=== PATIENT | female | born 1970 | race Caucasian/White ===

== ENCOUNTER 2017-05-15 11:31 | Inpatient (IN) | payer BC ==
[2017-05-15] VITALS (12 sets, daily range): BP systolic 112–137; BP diastolic 59–84
[~2017-05-15] VITALS: Ht 170.2 cm; Wt 89.4 kg
[~2017-05-15 11:31] MED LIST: ACIDOPHILUS PR1 EACH PO; ADULT LOW DOSE81 MG PO; ASPIR 8181 MG PO; ASPIRIN EC81 M1 PO; ASPIRIN325 PO; ASPIRIN81 M2 PO; BRILINTA90 MG PO; BROMELAINS500 MG PO; CALTRATE-600 W1 EACH PO; CARVEDILOL6.25 MG PO; CIPROFLOXACIN250 M2 PO; CRESTOR10 MG PO; DIABETA 5MG TABL5 MG PO; DIABETA PO; EFFIENT10 MG PO; FAMOTIDINE20 MG PO; FISH OIL500 M2 PO; GLUCOPHAGE1000 MG PO; GLUCOPHAGE500 MG PO; GLYBURIDE 5 MG T5 MG PO; IBUPROFEN200 M2; ISOSORBIDE DINI30 MG PO; L-ARGININE1000 MG PO; LIDODERM 5%1 PATCH TOP; LIPITOR40 MG PO; LOPRESSOR25 PO; LOTEMAX5 ML; MAGNESIUM PO; MAGNESIUM250 M1 PO; MULTIVITAMINS PO; MYLANTA 12 OZ355 M1; NIACIN PO; NIASPAN 500 MG500 M1 PO; NIASPAN ER 101000 M1 PO; NITROGLYCERIN0.4 MG SL; OMEPRAZOLE; OMEPRAZOLE 20 M20 MG PO; OXYCODONE HCL 55 MG PO; PEPCID20 MG PO; PLAVIX 75 MG TA75 M1 PO; PLAVIX 75 MG TA75 MG PO; PRENATAL VITAM1 EAC2 PO; PRILOSEC 20 MG20 MG PO; PROTONIX40 M2 PO; RA NIACIN 500500 MG PO; ZOCOR40 MG PO; ZONTIVITY2.08 MG PO; [UNRECOGNIZED DRUG - OTHER] PO
[2017-05-15 11:49] LABS: ABSOLUTE BASOPHILS 0.1 thou/uL (0.0-0.2); ABSOLUTE EOSINOPHILS 0.3 thou/uL (0.0-0.7); ABSOLUTE MONOCYTES 0.4 thou/uL (0.0-1.2); ABSOLUTE NEUTROPHILS 4.9 thou/uL (1.6-8.1); HEMATOCRIT 40.5 % (37.0-47.0); LYMPHOCYTES 26.1 %; MCH 31.2 pg (26.0-34.0); MCHC 34.5 g/dL (28.0-37.0); MCV 90.3 fL (80.0-100.0); MONOCYTES 5.1 %; MPV 6.9 fl. (7.2-11.1); NUCLEATED RBCS 0 /100WBC; PLATELET COUNT* 258 thou/uL (150-400); POLYS 63.8 %; RBC 4.49 mil/uL (4.20-5.00); WBC 7.6 thou/uL (4.0-11.0)
[2017-05-15 12:01] LABS: APTT 26.5 Seconds (25.0-31.3); PROTIME 9.9 Seconds (9.20-11.50)
[2017-05-15 12:03] LABS: ANION GAP 10 mmol/L (7-16); BUN 12 mg/dL (7-18); CALCIUM 8.6 mg/dL (8.5-10.1); CHLORIDE 103 mmol/L (98-107); CO2 26 mmol/L (21-32); CREATININE 0.7 mg/dL (0.6-1.3); GLUCOSE 154 mg/dL (70-99); POTASSIUM 3.6 mmol/L (3.5-5.1); SODIUM 139 mmol/L (136-145)
[2017-05-15 12:23] LABS: ALBUMIN 3.8 g/dL (3.4-5.0); ALKALINE PHOSPHATASE 97 U/L (46-116); LIPASE 176 U/L (73-393); MAGNESIUM 1.8 mg/dL (1.8-2.4); NT-PRO BRAIN NAT PEPTIDE 34 pg/mL (<300); SGOT 18 U/L (15-37); SGPT 26 U/L (30-65); TOTAL BILIRUBIN 0.4 mg/dL (<0.1-1.0); TOTAL PROTEIN 7.1 g/dL (6.4-8.2); TROPONIN-I LEVEL <0.06 ng/mL (<0.06)
[2017-05-15 12:25] LABS: CK-MB MASS < 0.5 ng/mL (<0.5-3.6)
--- NOTE | 2017-05-15 16:27 | EKG ---
[place] [address] ELECTROCARDIOGRAM REPORT Name: EDEN OTERO JG Room: [place] [address] ADM IN R.#: [id number] Admission: 05/15/17 Attend Phys: Tian Santiago Discharge: Date of : 68 Report #: [id number] THIS REPORT FOR: //name// [facility] ED Test Date: 2017-05-15 Test Time: 11:39:25 Pat Name: EDEN OTERO Department: Room: [facility] Gender: F Stamp Analyst: Josh ROGERS : 1970 Requested By: Silviano Manuel Order Number: [id number] MD: Jose Luis Hodges Measurements Intervals [place] Rate: 92 P: 56 [place]: 148 QRS: 34 QRSD: 73 T: 4 QT: 419 QTc: 519 Interpretive Statements Sinus rhythm Low voltage, precordial leads Prolonged QT interval Compared to ECG 10/15/2015 16:42:10 No significant changes Electronically Signed On 05-15-2017 16:27:39 LOG CARRIER OPERATOR by Jose Luis Hodges [email or web address] <ELECTRONICALLY SIGNED> By: Jose Luis Hodges MD, FACC 05/15/17 1627 1139 1139 Jose Luis Hodges MD, FAC /EPI
[2017-05-15 19:34] LABS: CK-MB MASS < 0.5 ng/mL (<0.5-3.6); TROPONIN-I LEVEL <0.06 ng/mL (<0.06)
[2017-05-16] VITALS: BP 113/71; BP 114/73
[2017-05-16 01:22] LABS: CK-MB MASS < 0.5 ng/mL (<0.5-3.6); TROPONIN-I LEVEL <0.06 ng/mL (<0.06)
[2017-05-16 04:00] VITALS: BP 114/73
[2017-05-16 06:18] LABS: HEMATOCRIT 40.7 % (37.0-47.0); MCH 31.1 pg (26.0-34.0); MCHC 34.4 g/dL (28.0-37.0); MCV 90.6 fL (80.0-100.0); MPV 7.1 fl. (7.2-11.1); RBC 4.49 mil/uL (4.20-5.00); RDW-CV 12.9 % (10.5-14.5); WBC 8.2 thou/uL (4.0-11.0)
[2017-05-16 06:35] LABS: CK-MB MASS 0.6 ng/mL (<0.5-3.6); TROPONIN-I LEVEL <0.06 ng/mL (<0.06)
[2017-05-16 08:25] VITALS: BP 114/73
[2017-05-16 09:15] VITALS: BP 116/64
[2017-05-16 12:12] VITALS: BP 127/73
--- NOTE | 2017-05-16 13:10 | EKG ---
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 President Of Marketing: ESTEBAN : 1970 Requested By: Himanshu Ag Order Number: [id number] Dennise MD: Himanshu Ag Measurements Intervals [place] Rate: 72 P: 27 [place]: 146 QRS: 36 QRSD: 73 T: 30 QT: 464 QTc: 508 Interpretive Statements Sinus rhythm nonspecific t wave changes Low voltage, extremity and precordial leads Borderline prolonged QT interval Baseline wander in lead(s) III,aVF Compared to ECG 05/15/2017 11:39:25 No significant changes Electronically Signed On 05-16-2017 13:09:58 SURVEILLANCE INSPECTOR by Himanshu Ag [email or web address] <ELECTRONICALLY SIGNED> By: Himanshu Ag MD, [facility] 05/16/17 1309 0448 0448 Himanshu Ag MD, [facility] /EPI
[2017-05-16 13:39] VITALS: BP 127/73
--- NOTE | 2017-05-18 18:19 | CARD ---
[address] [address] CARDIAC CATH REPORT Name: BRANDENEDEN JO Room: [address] IN [facility]#: [id number] Admission: 05/15/17 Attend Phys: Tian Santiago Discharge: 05/16/17 Date of : 68 Report #: [id number] THIS REPORT FOR: //name// APPROVED REPORT Patient Details Patient Status: ED Room #: The patient is a 47 year-old female Event Personnel Alie Pinzon RN, RN, Hayley Caceres Monitor, Juan Luis Nguyen, Jose Luis Hodges Manager English, Ling Thorpe Monitor, Himanshu Ag Director Of Pulmonary Unit Procedures Performed Art Access - R femoral artery* , Left Heart Catheterization, Left Ventriculogram, PTCA with Stenting Indication Unstable angina Risk Factors Coronary Artery Disease Previous Procedures/Diagnoses Previous PCI Procedure Narrative The patient was brought electively to the Cardiac Catheterization Laboratory and was prepped and draped in a sterile manner. The right femoral was infiltrated with 1% Lidocaine subcutaneous anesthesia. A 6fr Ultimum Sheath sheath was inserted into the right femoral artery. Coronary angiography was performed using coronary diagnostic catheters. The right coronary system was accessed and visualized with a Diagnostic JR 4 catheter. The left coronary system was accessed and visualized with a Diagnostic JL 4 catheter. The left ventricle was accessed and visualized with a Diagnostic PIGTAIL catheter. Left ventricular/Aortic Valve gradient assessed via catheter pullback. Left ventriculogram was performed in CONNELLY projection. Pre-demployment femoral angiogram was performed . Closure device was deployed with a 6 Fr Angioseal STS 6Fr. The patient tolerated the procedure well and there were no complications associated with the procedure. There was no hematoma. Intraoperative [place] [address] CARDIAC CATH REPORT Name: EDEN OTERO Room: [address]#: [id number] Admission: 05/15/17 Attend Phys: Tian Santiago Discharge: 05/16/17 Date of : 68 Report #: [id number] Sedation start time: 15:21 Case end Time: 16:14 Fentanyl 50 mcg Versed 3 mg Fluoro Time: 3.7 minutes Dose: DAP 16479 cGycm2 1006.71 mGy Contrast Type and Amount: Omnipaque 180 ml Diagnostic Cath Left Main Left main coronary artery is normal and bifurcates into a left anterior descending and circumflex coronary artery. LAD The left anterior descending coronary artery has a widely patent stent in its proximal portion. The mid-vessel is 50% narrowed. The distal vessel appears normal. Diagonal 1 The first diagonal has a 70% in-stent restenosis noted in its proximal portion. The distal vessel appears free of significant disease. Circumflex The circumflex coronary artery is normal in its proximal mid and distal portion. OM1 The first obtuse marginal branch has a 40% narrowing proximally. The remainder the vessel appears normal. OM2 The second obtuse marginal branch is normal. Right Coronary The right coronary artery is normal in its proximal mid and distal portion. R PDA The right PDA is normal. RPLV The right posterior lateral LV branch is normal. Left Ventriculography The left ventricle is normal in size with normal contractility. The left ventricular ejection fraction is estimated to be 65-70%. Left ventricular wall motion abnormalities are not present. Hemodynamics The aortic pressure is 106/61 mmHg with a mean of mmHg. The left ventricular pressure is 131/7 mmHg with a mean of mmHg. The left ventricular end diastolic pressure is 14 mmHg. There was no gradient across the aortic valve upon pullback. Pullback from the left ventricle to the aorta revealed no gradient across the aortic valve. PCI Technique Lesion Anticoagulation was achieved with Heparin. the patient had been taking plavix Percutaneous coronary intervention was performed on the first diagnonal branch segment. The lesion stenosis prior to intervention was 99% with DARVIN 3 flow. A 6FR XB 3.0 100CM [place] [address] CARDIAC CATH REPORT Name: EDEN OTERO Room: [address] IN M.R.#: [id number] Admission: 05/15/17 Attend Phys: Tian Santiago Discharge: 05/16/17 Date of : 68 Report #: [id number] Catheter was used to engage the lca ostium. A bmw Interventional Guidewire was used to cross the lesion. STENT DEPLOYMENT A drug-eluting stent I-STAT was inserted and inflated up to 7.00atm for 8seconds. Repeat angiography revealed the following post-stent deployment results: 0% stenosis. Additional Inflation: 10.00atm for 13seconds. Additional Inflation: 11.00atm for 12seconds. Final angiography reveals 0 % stenosis with DARVIN 3 flow. Conclusion 1. No restenosis of a stent in the proximal lad, although there was a 70% stenosis beyond the stent 2. 99% restenosis of a stent in the first diagonal branch 3. successful repeat stenting of the first diagonal branch, although the artery beyond the stent was noted to be very small Recommendations Cardiac Rehabilitation Referral Aggressive Medical Therapy Diagnostic Cath Approved by: Jose Luis Hodges MD Date/Time: <ELECTRONICALLY SIGNED> By: Himanshu Ag MD, [facility] 05/18/171818 18 18Dakath Ag MD, [facility] /INF
== END 2017-05-16 16:14 | disposition home or self-care (01) | DRG 303 ==
LOC: M.ERS 11:31 → M.TBA-ER 12:18 → M.2W 17:47
PROVIDERS: Family Medicine; Internal Medicine Cardiovascular Disease; ADMIT Internal Medicine
DX: I25.110 Atherosclerotic heart disease of native coronary artery with unstable angina pectoris (principal); K21.9 Gastro-esophageal reflux disease without esophagitis; E11.9 Type 2 diabetes mellitus without complications; E78.5 Hyperlipidemia, unspecified; F17.210 Nicotine dependence, cigarettes, uncomplicated; Z71.6 Tobacco abuse counseling; I25.2 Old myocardial infarction; Z90.49 Acquired absence of other specified parts of digestive tract; Z95.5 Presence of coronary angioplasty implant and graft; Z79.02 Long term (current) use of antithrombotics/antiplatelets; Z79.82 Long term (current) use of aspirin; Z79.84 Long term (current) use of oral hypoglycemic drugs; Z79.899 Other long term (current) drug therapy

== ENCOUNTER 2017-07-20 15:36 | Inpatient (IN) | payer BC ==
[~2017-07-20] VITALS: Ht 170.2 cm; Wt 87.1 kg
[2017-07-20 15:39] VITALS: BP 130/79
[2017-07-20] MEDS ORDERED: ASA5UEC PO (15:42)
[2017-07-20 16:17] LABS: ABSOLUTE BASOPHILS 0.1 thou/uL (0.0-0.2); ABSOLUTE EOSINOPHILS 0.2 thou/uL (0.0-0.7); ABSOLUTE LYMPHOCYTES 1.7 thou/uL (0.8-5.3); ABSOLUTE MONOCYTES 0.4 thou/uL (0.0-1.2); ABSOLUTE NEUTROPHILS 5.4 thou/uL (1.6-8.1); BASOPHILS 1.2 %; EOSINOPHILS 2.3 %; HEMATOCRIT 42.5 % (37.0-47.0); HEMOGLOBIN 14.6 gm/dL (12.0-15.0); LYMPHOCYTES 21.6 %; MCH 31.2 pg (26.0-34.0); MCHC 34.5 g/dL (28.0-37.0); MCV 90.4 fL (80.0-100.0); MONOCYTES 5.7 %; MPV 7.3 fl. (7.2-11.1); NUCLEATED RBCS 0 /100WBC; PLATELET COUNT* 273 thou/uL (150-400); POLYS 69.2 %; RDW-CV 13.2 % (10.5-14.5); WBC 7.8 thou/uL (4.0-11.0)
[2017-07-20 16:27] LABS: ANION GAP 8 mmol/L (7-16); BUN 11 mg/dL (7-18); CALCIUM 9.1 mg/dL (8.5-10.1); CHLORIDE 104 mmol/L (98-107); CO2 27 mmol/L (21-32); CREATININE 0.7 mg/dL (0.6-1.3); GLUCOSE 252 mg/dL (70-99); POTASSIUM 3.8 mmol/L (3.5-5.1); SODIUM 139 mmol/L (136-145)
[2017-07-20 16:37] LABS: ALBUMIN 3.9 g/dL (3.4-5.0); ALKALINE PHOSPHATASE 112 U/L (46-116); LIPASE 152 U/L (73-393); NT-PRO BRAIN NAT PEPTIDE 53 pg/mL (<300); SGOT 13 U/L (15-37); SGPT 22 U/L (30-65); TOTAL BILIRUBIN 0.4 mg/dL (<0.1-1.0); TOTAL PROTEIN 7.4 g/dL (6.4-8.2); TROPONIN-I LEVEL <0.06 ng/mL (<0.06)
[2017-07-20] MEDS ORDERED: GLUCOPHAGE1000 MG PO (17:01)
[2017-07-20] MEDS ORDERED: NITROGLYCERIN0.4 MG SL (17:01)
[2017-07-20] MEDS ORDERED: LOPRESSOR25 PO (17:01)
[2017-07-20] MEDS ORDERED: LIPITOR40 MG PO (17:01)
[2017-07-20 17:24] VITALS: BP 119/59
[2017-07-20 17:55] VITALS: BP 123/74
[2017-07-20] MEDS ORDERED: AMARYL2 MG PO (17:56)
[2017-07-20] MEDS ORDERED: PROTONIX40 M1 PO (17:57)
[2017-07-20 20:00] VITALS: BP 131/70
[2017-07-21] VITALS (13 sets, daily range): BP systolic 97–122; BP diastolic 52–76
[2017-07-21 05:50] LABS: ABSOLUTE BASOPHILS 0.1 thou/uL (0.0-0.2); ABSOLUTE EOSINOPHILS 0.3 thou/uL (0.0-0.7); ABSOLUTE LYMPHOCYTES 2.7 thou/uL (0.8-5.3); ABSOLUTE MONOCYTES 0.6 thou/uL (0.0-1.2); ABSOLUTE NEUTROPHILS 4.4 thou/uL (1.6-8.1); BASOPHILS 1.1 %; EOSINOPHILS 3.5 %; HEMATOCRIT 38.4 % (37.0-47.0); HEMOGLOBIN 13.2 gm/dL (12.0-15.0); LYMPHOCYTES 33.5 %; MCHC 34.4 g/dL (28.0-37.0); MCV 90.2 fL (80.0-100.0); MONOCYTES 7.3 %; MPV 7.2 fl. (7.2-11.1); NUCLEATED RBCS 0 /100WBC; PLATELET COUNT* 243 thou/uL (150-400); POLYS 54.6 %; RBC 4.25 mil/uL (4.20-5.00); RDW-CV 13.3 % (10.5-14.5)
[2017-07-21 06:23] LABS: ALBUMIN 3.2 g/dL (3.4-5.0); ALKALINE PHOSPHATASE 84 U/L (46-116); ANION GAP 8 mmol/L (7-16); BUN 13 mg/dL (7-18); CALCIUM 8.5 mg/dL (8.5-10.1); CHLORIDE 105 mmol/L (98-107); CO2 26 mmol/L (21-32); CREATININE 0.7 mg/dL (0.6-1.3); GLUCOSE 206 mg/dL (70-99); POTASSIUM 3.7 mmol/L (3.5-5.1); SGOT 15 U/L (15-37); SGPT 18 U/L (30-65); SODIUM 139 mmol/L (136-145); TOTAL BILIRUBIN 0.5 mg/dL (<0.1-1.0); TOTAL PROTEIN 6.1 g/dL (6.4-8.2)
[2017-07-21 06:38] LABS: CHOLESTEROL 178 mg/dL (<200); HDL CHOLESTEROL 38 mg/dL (>40); LDL CHOLESTEROL 111 mg/dL (<100); TC:HDL 4.7 Ratio (Not establshd); TRIGLYCERIDE 145 mg/dL (<150); VLDL 29 mg/dL (<40)
[2017-07-21 06:40] LABS: SERUM ASSESSMENT CLEAR
[2017-07-21 10:58] LABS: CALCIUM 8.7 mg/dL (8.5-10.1); CREATININE 0.8 mg/dL (0.6-1.3); POTASSIUM 4.2 mmol/L (3.5-5.1)
--- NOTE | 2017-07-21 12:24 | EKG ---
[place] [address] ELECTROCARDIOGRAM REPORT Name: CINTIA OTERONATHAN GREGORIO Room: [address] ADM IN .R.#: [id number] Admission: 07/20/17 Attend Phys: Tian Santiago Discharge: Date of : 68 Report #: [id number] THIS REPORT FOR: //name// [facility] ED Test Date: 2017-07-20 Test Time: 15:49:05 Pat Name: EDEN OTERO Department: Room: [facility] Gender: F Offset Press Operator: DAVID : 1970 Requested By: Emmanuel Francis Order Number: [id number] MD: Leo Morales Measurements Intervals [place] Rate: 76 P: 65 [place]: 143 QRS: 37 QRSD: 100 T: 2 QT: 390 QTc: 439 Interpretive Statements Sinus rhythm Borderline low voltage, extremity leads Compared to ECG 05/16/2017 04:48:26 T-wave abnormality no longer present Electronically Signed On 07-21-2017 12:24:02 CDT by Leo Morales [email or web address] <ELECTRONICALLY SIGNED> By: Leo Morales MD, [facility] 07/21/17 1224 1549 1549 Leo Morales MD, [facility] /EPI
--- NOTE | 2017-07-21 13:15 | CARD ---
[address] [address] CARDIAC CATH REPORT Name: EDEN OTERO Room: [address] IN [facility]#: [id number] Admission: 07/20/17 Attend Phys: Tian Santiago Discharge: Date of : 68 Report #: [id number] THIS REPORT FOR: //name// APPROVED REPORT Study performed: 07/21/2017 10:45:41 Patient Details Patient Status: In-Patient Room #: 222 The patient is a 47 year-old female Event Personnel Hayley Caceres, Sarah Little RN RN, Ling Thorpe Blick, David Emergency Crew Supervisor Procedures Performed Art Access - R femoral artery* Left Heart Cath w/LT VGram [id number] LHCLV [facility] Place w/wo Plasty Single LAD [id number] Indication Unstable angina Risk Factors Hypercholesterolemia, Coronary Artery Disease Previous Procedures/Diagnoses Previous PCI Admission/Lab Medications/Medications given during procedure Heparin Unfract. Procedure Narrative The patient was brought electively to the Cardiac Catheterization Laboratory and was prepped and draped in a sterile manner. The right femoral was infiltrated with 2% Lidocaine subcutaneous anesthesia. A 6fr Ultimum Sheath sheath was inserted into the right femoral artery. Coronary angiography was performed using coronary diagnostic catheters. The right coronary system was accessed and visualized with a Diagnostic catheter. The left coronary system was accessed and visualized with a Diagnostic catheter. The left ventricle was accessed and visualized with a Diagnostic catheter. Left ventricular/Aortic Valve gradient assessed via catheter pullback. Left ventriculogram was performed in CONNELLY projection. Closure device was deployed with a 6 Fr Angioseal STS 6Fr. The patient tolerated the procedure well and there [place] [address] CARDIAC CATH REPORT Name: EDEN OTERO Room: [address]#: [id number] Admission: 07/20/17 Attend Phys: Tian Santiago Discharge: Date of : 68 Report #: [id number] procedure. There was no hematoma. Intraoperative Conscious Sedation Sedation start time: 1135 Case end Time: 1219 Fentanyl 25 mcg Versed 4 mg Dose: 839.85 mGy Contrast Type and Amount: Visipaque 130 ml Coronary Angiography The patient's coronary anatomy is right dominant. Diagnostic Cath Left Main 0% stenosis LAD long stent that started in the proximal lad and covered the takeoff of the second diagonal branch. No restenosis of the stent but there was a 90% distal edge restenosis noted Diagonal 2 Patent proximal stent, although the vessel beyond the stent was very small in diameter with a significant mismatch between the large lumen stent and the [place] diagonal artery Circumflex mid 50% stenosis noted Right Coronary 0% stenosis Left Ventriculography The left ventricular ejection fraction is estimated to be 60-65%. Left ventricular wall motion abnormalities are not present. There is no mitral insufficiency. Hemodynamics The aortic pressure is 110/62 mmHg with a mean of 81 mmHg. The left ventricular pressure is 112/5 mmHg with a mean of mmHg. The left ventricular end diastolic pressure is 14 mmHg. There was no gradient across the aortic valve upon pullback. Pullback from the left ventricle to the aorta revealed no gradient across the aortic valve. PCI Technique Lesion Anticoagulation was achieved with Heparin. Patient was preloaded with Plavix. Percutaneous coronary intervention was performed on the mid left anterior descending artery segment. The lesion stenosis prior to intervention was 90% with DARVIN 3 flow. A 6F XB LAD 3.5 Guide Catheter was used to engage the ostium. A IG: BMW 190cm Interventional Guidewire was used to cross the [place] [address] CARDIAC CATH REPORT Name: EDEN OTERO Room: [address]#: [id number] Admission: 07/20/17 Attend Phys: Tian Santiago Discharge: Date of : 68 Report #: [id number] A drug-eluting stent Xience Alpine RX 2.25X15 was inserted and inflated up to 6.00atm for 14seconds. Repeat angiography revealed the following post-stent deployment results: 0% stenosis. Additional Inflation: 7.00atm for 8seconds. Additional Inflation: 7.00atm for 10seconds. POST STENT DEPLOYMENT BALLOON DILATION A Balloon catheter Xience Alpine RX 2.25X15 was inserted and inflated up to 7.00atm for 11seconds. Additional Inflation: 9.00atm for 17seconds. Additional Inflation: 9.00atm for 11seconds. Final angiography reveals 0 % stenosis with DARVIN 3 flow. COMMENTS patient was given 100 mcg ic nitroglycerin Conclusion 1. no restenosis of stents in the proximal lad and second diagonal branch 2. small vessel noted beyond stent in the diagonal artery 3. 90% distal edge stenosis noted in the mid lad 4. successful placement of a single drug eluting stent in the mid lad Recommendations Cardiac Rehabilitation Referral Aggressive Medical Therapy <ELECTRONICALLY SIGNED> By: Himanshu Ag MD, FACC 07/21/17 1315 1315Himanshu Ag MD, FACC /INF
[2017-07-22] VITALS: BP 100/65
[2017-07-22 04:00] VITALS: BP 105/65
[2017-07-22 04:51] LABS: HEMATOCRIT 38.3 % (37.0-47.0); HEMOGLOBIN 13.3 gm/dL (12.0-15.0); MCH 31.3 pg (26.0-34.0); MCHC 34.7 g/dL (28.0-37.0); MCV 90.3 fL (80.0-100.0); MPV 7.2 fl. (7.2-11.1); RBC 4.24 mil/uL (4.20-5.00); WBC 7.2 thou/uL (4.0-11.0)
[2017-07-22 05:19] LABS: CALCIUM 8.6 mg/dL (8.5-10.1); POTASSIUM 4.5 mmol/L (3.5-5.1)
[2017-07-22 08:05] VITALS: BP 132/77
[2017-07-22 11:22] VITALS: BP 132/77
[2017-07-22] MEDS ORDERED: METFORMIN HCL500 MG PO (11:43)
[2017-07-22 12:25] VITALS: BP 114/63
--- NOTE | 2017-07-22 13:01 | EKG ---
[place] [address] ELECTROCARDIOGRAM REPORT Name: CINTIA OTERONATHAN GREGORIO Room: [address] ADM IN M.R.#: [id number] Admission: 07/20/17 Attend Phys: Tian Santiago Discharge: Date of : 68 Report #: [id number] THIS REPORT FOR: //name// [facility] Test Date: 2017-07-22 Test Time: 03:04:13 Pat Name: EDEN OTERO Department: Room: [address] Gender: F Screen Door Maker: GLENIS : 1970 Requested By: Himanshu Ag Order Number: [id number] Reading MD: Leo Morales Measurements Intervals [place] Rate: 67 P: 75 MT: 164 QRS: 52 QRSD: 88 T: 11 QT: 514 QTc: 543 Interpretive Statements Sinus rhythm Low voltage, extremity and precordial leads Prolonged QT interval Compared to ECG 07/20/2017 15:49:05 Prolonged QT interval now present Electronically Signed On 07-22-2017 13:00:52 CDT by Leo Morales [email or web address] <ELECTRONICALLY SIGNED> By: Leo Morales MD, [facility] 07/22/17 1300 0304 0304 Leo Morales MD, [facility] /EPI
[2017-07-22 14:24] VITALS: BP 132/77
[2017-07-22 17:11] LABS: GLYCOHEMOGLOBIN (HGB A1C) 7.1 % (4.8-5.6)
--- NOTE | 2017-07-27 15:43 | CON ---
[address] [address] CONSULTATION Name: EDEN OTERO Room: [address] IN M.R.#: [id number] Admission: 07/20/17 Attend Phys: Tian Santiago Discharge: 07/22/17 Date of : 68 Report #: [id number] THIS REPORT FOR: //name// CC: Andrew Jules CHIEF COMPLAINT: Chest pain. HISTORY OF PRESENT ILLNESS: The patient is a 47-year-old female followed by myself for her multivessel coronary artery disease. She was getting ready for work yesterday afternoon and had a severe onset of resting chest discomfort, which lasted more than 30 minutes long. She took nitroglycerin without relief and then went to the Emergency Room, was given aspirin and another 2 rounds of nitroglycerin. Her symptoms finally resolved. Her ECG did not show any acute ST segment changes. She was admitted for observation and still has a very mild chest discomfort this morning, but overall, feels improved. Clinically, she has no associated shortness of breath, orthopnea, PND or weight gain. She recently had a PCI to a subtotally occluded large diagonal vessel, which was in-stent restenosis. There was a mid LAD stenosis in the 70% range, which was left alone for medical therapy, but point in fact, she had been having some angina symptoms, which were previously mild off and on following the procedure, but now are severe and resting. She has been compliant with her Plavix therapy. PAST MEDICAL HISTORY: Significant for diabetes mellitus, coronary artery disease, prior PCI to diagonal and proximal LAD. The proximal LAD stent was noted to be patent at the time of her cardiac catheterization earlier this year. She has GERD, hyperlipidemia, anxiety. HOME MEDICATIONS: Include Xanax p.r.n., atorvastatin 40 mg daily, clopidogrel 75 mg daily, Amaryl 2 mg daily, metformin 1000 mg daily, Lopressor 25 mg p.o. b.i.d., nitroglycerin p.r.n. REVIEW OF SYSTEMS: GASTROINTESTINAL: No hematemesis or melena. GENITOURINARY: No dysuria or hematuria. PULMONARY: No cough. NEUROLOGIC: Denies slurred speech, numbness or weakness. ENDOCRINE: Positive diabetes. No renal failure. SKIN: No rashes. GENERAL: [place] [address] CONSULTATION Name: CINTIA OTERONATHAN GREGORIO Room: [address]#: [id number] Admission: 07/20/17 Attend Phys: Tian Santiago Discharge: 07/22/17 Date of : 68 Report #: [id number] CONSTITUTIONAL: No weakness or exposure to viral syndromes or flu-like syndromes. PAST SURGICAL HISTORY: PCI earlier this year. No recent surgeries, otherwise. PHYSICAL EXAMINATION: VITAL SIGNS: Blood pressure 112/70, pulse 64. GENERAL: This is a moderately obese, middle-aged woman. She is alert, no apparent distress. NECK: Supple. No jugular venous distention. CARDIOVASCULAR: Regular. I cannot hear a murmur. LUNGS: Clear to auscultation. ABDOMEN: Soft, nontender. EXTREMITIES: No peripheral edema. PULSES: Femoral pulses are intact. Dorsalis pedis pulses are normal. ECG shows a sinus rhythm, nonspecific T-wave flattening, no ST elevation. LABORATORY DATA: Hemoglobin 13.2, white blood cell count 8.0, platelet count is 243,000. Sodium is 139, potassium 3.7, chloride is 105, CO2 is 26, BUN is 13, creatinine is 0.7. D-dimer is 0.31. Troponin I is 0.06 x 3 sets. IMPRESSION AND PLAN: 1. Unstable angina. Previously, she had been doing fairly well with medical therapy for her left anterior descending lesion, which was untreated after her percutaneous coronary intervention to her diagonal, which was more severely diseased, but lately, she has been having more frequent anginas, now is having rest angina. I think she is failing medical therapy, so I would recommend proceeding with a percutaneous coronary intervention to her mid left anterior descending to 70% stenosis. At this point in time, she has been compliant with her medical therapy. 2. Coronary artery disease. She is status post percutaneous coronary intervention previously to the proximal left anterior descending, which was patent, and earlier this year, a subtotally occluded large diagonal vessel, which is likely patent. 3. Hyperlipidemia. We will resurvey her lipid survey and treat accordingly. 4. Diabetes mellitus. <ELECTRONICALLY SIGNED> By: Leo Morales MD, FACC 07/27/17 1543 1029 [id number] Morales MD, FACC /nt
== END 2017-07-22 14:25 | disposition home or self-care (01) | DRG 247 ==
LOC: M.ERS 15:36 → M.2W 16:38 → M.TBA-ER 16:38 → M.2W 17:37
PROVIDERS: Emergency Medicine Emergency Medical Services; Internal Medicine Cardiovascular Disease; ADMIT Internal Medicine
PROC: 027034Z Dilation of Coronary Artery, One Artery with Drug-eluting Intraluminal Device, Percutaneous Approach (ICD-10-PCS; principal; 2017-07-21)
PROC: 4A023N7 Measurement of Cardiac Sampling and Pressure, Left Heart, Percutaneous Approach (ICD-10-PCS; principal; 2017-07-21)
PROC: B211YZZ Fluoroscopy of Multiple Coronary Arteries using Other Contrast (ICD-10-PCS; principal; 2017-07-21)
PROC: B215YZZ Fluoroscopy of Left Heart using Other Contrast (ICD-10-PCS; principal; 2017-07-21)
DX: I25.110 Atherosclerotic heart disease of native coronary artery with unstable angina pectoris (principal); E11.9 Type 2 diabetes mellitus without complications; I10 Essential (primary) hypertension; E78.5 Hyperlipidemia, unspecified; K21.9 Gastro-esophageal reflux disease without esophagitis; F17.210 Nicotine dependence, cigarettes, uncomplicated; E66.9 Obesity, unspecified; F41.9 Anxiety disorder, unspecified; Z95.5 Presence of coronary angioplasty implant and graft; Z68.30 Body mass index [BMI] 30.0-30.9, adult; Z90.49 Acquired absence of other specified parts of digestive tract; Z79.82 Long term (current) use of aspirin; Z79.899 Other long term (current) drug therapy

== ENCOUNTER → 2018-05-21 | Outpatient (CLI) | payer BC ==
[~2018-05-21] MED LIST changes: +AMARYL2 MG PO; +ASA5UEC PO; +METFORMIN HCL500 MG PO; +PROTONIX40 M1 PO
[2018-05-21 06:44] LABS: ABSOLUTE BASOPHILS 0.1 thou/uL (0.0-0.2); ABSOLUTE EOSINOPHILS 0.2 thou/uL (0.0-0.7); ABSOLUTE LYMPHOCYTES 1.7 thou/uL (0.8-5.3); ABSOLUTE MONOCYTES 0.5 thou/uL (0.0-1.2); BASOPHILS 0.9 %; EOSINOPHILS 3.6 %; HEMOGLOBIN 13.4 gm/dL (12.0-15.0); LYMPHOCYTES 25.8 %; MCH 31.4 pg (26.0-34.0); MCHC 34.5 g/dL (28.0-37.0); MCV 91.2 fL (80.0-100.0); MONOCYTES 8.1 %; MPV 7.1 fl. (7.2-11.1); NUCLEATED RBCS 0 /100WBC; PLATELET COUNT* 284 thou/uL (150-400); POLYS 61.6 %; RBC 4.27 mil/uL (4.20-5.00); RDW-CV 14.1 % (10.5-14.5); WBC 6.4 thou/uL (4.0-11.0)
[2018-05-21 06:50] LABS: ALBUMIN 3.4 g/dL (3.4-5.0); ALKALINE PHOSPHATASE 107 U/L (46-116); ANION GAP 6 mmol/L (7-16); BUN 13 mg/dL (7-18); CALCIUM 8.6 mg/dL (8.5-10.1); CHLORIDE 100 mmol/L (98-107); CHOLESTEROL 104 mg/dL (<200); CO2 27 mmol/L (21-32); CREATININE 0.7 mg/dL (0.6-1.3); GLUCOSE 177 mg/dL (70-99); HDL CHOLESTEROL 41 mg/dL (>40); LDL CHOLESTEROL 42 mg/dL (<100); SGOT 22 U/L (15-37); SGPT 28 U/L (30-65); SODIUM 133 mmol/L (136-145); TC:HDL 2.5 Ratio (Not establshd); TOTAL BILIRUBIN 0.3 mg/dL (<0.1-1.0); TOTAL PROTEIN 6.5 g/dL (6.4-8.2); TRIGLYCERIDE 106 mg/dL (<150); VLDL 21 mg/dL (<40)
[2018-05-21 06:51] LABS: POTASSIUM 3.9 mmol/L (3.5-5.1); SERUM ASSESSMENT Clear
[2018-05-22 02:06] LABS: GLYCOHEMOGLOBIN (HGB A1C) 6.9 % (4.8-5.6)
== END ==
LOC: M.LAB 06:14
PROVIDERS: Family Medicine
DX: E11.65 Type 2 diabetes mellitus with hyperglycemia (principal); I10 Essential (primary) hypertension; I25.10 Atherosclerotic heart disease of native coronary artery without angina pectoris; K21.9 Gastro-esophageal reflux disease without esophagitis; E78.2 Mixed hyperlipidemia; G47.00 Insomnia, unspecified

== ENCOUNTER 2018-10-23 01:28 | Inpatient (IN) | payer BC ==
[~2018-10-23] VITALS: Ht 170.2 cm; Wt 88.4 kg
[2018-10-23] VITALS (16 sets, daily range): BP systolic 88–122; BP diastolic 59–75
[2018-10-23] MEDS ORDERED: XANAX 0.25 MG0.25 MG PO ×2 (04:47→04:54)
[2018-10-23] MEDS ORDERED: CHILDREN'S ASPI81 M1 PO (04:50)
[2018-10-23] MEDS ORDERED: GLYBURIDE 2.52.5 MG PO (04:56)
[2018-10-23 06:26] LABS: ALKALINE PHOSPHATASE 109 U/L (46-116); ANION GAP 11 mmol/L (7-16); BUN 8 mg/dL (7-18); CALCIUM 9.3 mg/dL (8.5-10.1); CHLORIDE 106 mmol/L (98-107); CO2 26 mmol/L (21-32); CREATININE 0.8 mg/dL (0.6-1.3); GLUCOSE 145 mg/dL (70-99); POTASSIUM 3.9 mmol/L (3.5-5.1); SGOT 18 U/L (15-37); SGPT 36 U/L (30-65); SODIUM 143 mmol/L (136-145); TOTAL BILIRUBIN 0.4 mg/dL (<0.1-1.0); TOTAL PROTEIN 6.7 g/dL (6.4-8.2)
[2018-10-23 06:27] LABS: ALBUMIN 3.6 g/dL (3.4-5.0); TROPONIN-I LEVEL <0.06 ng/mL (<0.06)
[2018-10-23 06:29] LABS: APTT 26.7 Seconds (25.0-31.3)
[2018-10-23 06:31] LABS: ABSOLUTE BASOPHILS 0.1 thou/uL (0.0-0.2); ABSOLUTE EOSINOPHILS 0.2 thou/uL (0.0-0.7); ABSOLUTE LYMPHOCYTES 2.7 thou/uL (0.8-5.3); ABSOLUTE MONOCYTES 0.6 thou/uL (0.0-1.2); ABSOLUTE NEUTROPHILS 4.7 thou/uL (1.6-8.1); BASOPHILS 1.3 %; HEMATOCRIT 37.7 % (37.0-47.0); HEMOGLOBIN 13.1 gm/dL (12.0-15.0); LYMPHOCYTES 32.1 %; MCH 30.6 pg (26.0-34.0); MCHC 34.8 g/dL (28.0-37.0); MCV 87.8 fL (80.0-100.0); MONOCYTES 7.4 %; NUCLEATED RBCS 0 /100WBC; PLATELET COUNT* 240 thou/uL (150-400); POLYS 56.2 %; RBC 4.29 mil/uL (4.20-5.00); RDW-CV 12.6 % (10.5-14.5); WBC 8.3 thou/uL (4.0-11.0)
--- NOTE | 2018-10-23 06:49 | NUR ---
PATIENT UP FROM ER AT 0235. PT ALERT/ORIENTED X4 AND UP AD MARLENE. PT WITH SALINE LOCK IN RT AC. PT C/O CHEST PAIN FOR SEVERAL HOUR. PT REFUSED NITRO TAB IN ER BUT REQUESTED ONE ON THE FLOOR. NITRO GIVEN AT 0255. RECHECKED 5 MINUTES LATER AND PT C/O HEADACHE AND CHEST PAIN HAD LESSENED BUT REFUSED A SEOND TAB. PT SLEPT. PT STATED SHE HAS HAD SIX STENTS PLACED IN THE PAST. FREQUENTLY USED ITEMS AND CALL LIGHT WITHIN REACH. WILL CONTINUE TO MONITOR.
--- NOTE | 2018-10-23 10:29 | EKG ---
[place] [address] ELECTROCARDIOGRAM REPORT Name: EDEN OTERO Room: [address] ADM IN M.R.#: [id number] Admission: 10/23/18 Attend Phys: Rachel King MD Discharge: Date of : 68 Report #: [id number] THIS REPORT FOR: //name// [facility] ED Test Date: 2018-10-23 Test Time: 01:23:33 Pat Name: EDEN OTERO Department: Room: [address] Gender: F It Infrastructure Specialist: UNKNOWN : 1970 Requested By: Silviano Manuel Order Number: [id number] Reading MD: Himanshu Ag Measurements Intervals [place] Rate: 79 P: 47 [place]: 145 QRS: 34 QRSD: 106 T: 175 QT: 368 QTc: 422 Interpretive Statements Sinus rhythm Borderline low voltage, extremity leads Nonspecific repol abnormality, diffuse leads Baseline wander in lead(s) I,aVR Compared to ECG 07/22/2017 03:04:13 Early repolarization now present Prolonged QT interval no longer present Electronically Signed On 10-23-2018 10:29:29 CDT by Himanshu Ag [email or web address] <ELECTRONICALLY SIGNED> By: Himanshu Ag MD, [facility] 10/23/18 1029 0123 0123 Himanshu Ag MD, [facility] /EPI
--- NOTE | 2018-10-23 10:31 | EKG ---
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
--- NOTE | 2018-10-23 13:53 | NUR ---
ASSUSMED CARE OF PT APPROX 0730. ASSESSMENT COMPLETED CHARTED. PT COMPLAINTS OF LEFT NECK AND LEFT ARM PAIN THIS AM. MEDICATION GIVEN FOR PAIN AND PTS PAIN CHANGED FROM 7 TO 3 ON A 1-10 PAIN SCALE. WILL CONTINUE TO MONITOR.
--- NOTE | 2018-10-23 16:50 | EKG ---
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 Case Manager: : 1970 Requested By: Himanshu Ag Order Number: [id number] Reading MD: Jose Luis Hodges Measurements Intervals [place] Rate: 54 P: 58 ID: 151 QRS: 30 QRSD: 108 T: -26 QT: 456 QTc: 433 Interpretive Statements Sinus rhythm Borderline low voltage, extremity leads Nonspecific T abnormalities, anterior leads Compared to ECG 10/23/2018 09:12:38 Sinus bradycardia no longer present T-wave abnormality still present Electronically Signed On 10-23-2018 16:50:06 CDT by Jose Luis Hodges [email or web address] <ELECTRONICALLY SIGNED> By: Jose Luis Hodges MD, FACC 10/23/18 1650 1504 1504 Jose Luis Hodges MD, [facility] /EPI
--- NOTE | 2018-10-23 17:59 | CARD ---
[address] [address] CARDIAC CATH REPORT Name: EDEN OTERO Room: [address] IN [facility]#: [id number] Admission: 10/23/18 Attend Phys: Rachel King MD Discharge: Date of : 68 Report #: [id number] THIS REPORT FOR: //name// APPROVED REPORT Study performed: 10/23/2018 13:05:19 Patient Details Patient Status: In-Patient Room #: The patient is a 48 year-old female Event Personnel Himanshu Ag Lead Technician, Claire Roberson RN RN, Juan Luis Nguyen GREASE MAN Scrub, Hanna Alexander RTR Scrub, Kaylie Ngo RN Monitor, Lorin Pavon RTR Monitor Procedures Performed Art Access - R femoral artery* Indication Unstable angina , Chest pain Risk Factors Hypercholesterolemia, Diabetes Previous Procedures/Diagnoses Previous PCI Admission/Lab Medications/Medications given during procedure Glycoprotein IllbIlla Inhibitors, Heparin Unfract. Procedure Narrative The patient was brought electively to the Cardiac Catheterization Laboratory and was prepped and draped in a sterile manner. The right femoral was infiltrated with 1% Lidocaine subcutaneous anesthesia. A 6fr Ultimum Sheath sheath was inserted into the right femoral artery. Coronary angiography was performed using coronary diagnostic catheters. The right coronary system was accessed and visualized with a JR4 FR6 catheter. The left coronary system was accessed and visualized with a JL4 FR6 catheter. The left ventricle was accessed and visualized with a PIGTAIL FR6 catheter. Left ventricular/Aortic Valve gradient assessed via catheter pullback. Left ventriculogram was performed in CONNELLY projection. Closure device was deployed with a 6 Fr Angioseal STS 6Fr. The patient [place] [address] CARDIAC CATH REPORT Name: EDEN OTERO Room: [address] IN [facility]#: [id number] Admission: 10/23/18 Attend Phys: Rachel King MD Discharge: Date of : 68 Report #: [id number] there were no complications associated with the procedure. There was no hematoma. Intraoperative Conscious Sedation Sedation start time: 1342 Case end Time: 1436 Fentanyl 125 mcg Versed 5 mg Fluoro Time: 8.1 minutes Dose: DAP 50474 cGycm2 1240 mGy Contrast Type and Amount: Omnipaque 150 ml Coronary Angiography The patient's coronary anatomy is right dominant. Diagnostic Cath Left Main 0% stenosis LAD 0stial 90% stenosis just prior to a stent in the proximal lad that had no restenosis. Mid lad had a stent without restenosis. Diagonal 1 proximal stent with no restenosis, but artery beyond the stent had a very small lumen Circumflex 70% mid stenosis noted Right Coronary 0% stenosis Left Ventriculography The left ventricle is normal in size with normal contractility. The left ventricular ejection fraction is estimated to be 60-65%. Left ventricular wall motion abnormalities are not present. There is no mitral insufficiency. Hemodynamics The aortic pressure is 114/51 mmHg with a mean of 73 mmHg. The left ventricular pressure is 121/10 mmHg with a mean of mmHg. The left ventricular end diastolic pressure is 10 mmHg. There was no gradient across the aortic valve upon pullback. Pullback from the left ventricle to the aorta revealed no gradient across the aortic valve. PCI Technique Lesion Anticoagulation was achieved with Heparin. bolus of iv aggrastat given Patient was preloaded with Plavix. Percutaneous coronary intervention was performed on the proximal left anterior descending artery segment. The lesion stenosis prior to intervention was 90% with DARVIN 3 flow. A 6F XB LAD 3.5 Guide Catheter was used to engage the lm ostium. A whisper Interventional [place] [address] CARDIAC CATH REPORT Name: EDEN OTERO Room: [address]#: [id number] Admission: 10/23/18 Attend Phys: Rachel King MD Discharge: Date of : 68 Report #: [id number] the lesion. BALLOON DILATION A Balloon catheter 2.0 x 8 mm was inserted and inflated up to 16atm for 19seconds. Repeat angiography revealed the following post-dilatation results: 50% stenosis. STENT DEPLOYMENT A drug-eluting stent Farhat RX Stent 2.5X15mm was inserted and inflated up to 14.00atm for 17seconds. Repeat angiography revealed the following post-stent deployment results: 0% stenosis. Additional Inflation: 15.00atm for 16seconds. Additional Inflation: 17.00atm for 17seconds. Final angiography reveals 0 % stenosis with DARVIN 3 flow. PCI Technique Lesion 2 Percutaneous Coronary Intervention was performed on the mid circumflex artery segment. Patient was preloaded with Plavix. Percutaneous coronary intervention was performed on the mid circumflex artery segment. The lesion stenosis prior to intervention was 70% with DARVIN 3 flow. A 6F XB LAD 3.5 Guide Catheter was used to engage the lm ostium. A whisper Interventional Guidewire was used to cross the lesion. Balloon Dilation A Balloon catheter 2.0 x 8 mm was inserted and inflated up to 8atm for 10seconds. Repeat angiography revealed the following post-dilatation results: 30% stenosis. Stent Deployment A drug-eluting stent Farhat RX Stent 2.5X12mm was inserted and inflated up to 9.00atm for 16seconds. Repeat angiography revealed the following post-stent deployment results: 0% stenosis. Additional Inflation: 11.00atm for 15seconds. Additional Inflation: 12.00atm for 12seconds. Final angiography reveals 0 % stenosis with DARVIN 3 flow. Conclusion 1. no restenosis of stents in the proximal lad and diagonal artery 2. 90% ostial stenosis of the lad 3. 70% stenosis of the mid circumflex artery. 4. LVEF 60-65% [place] [address] CARDIAC CATH REPORT Name: EDEN OTERO Room: [address] IN [facility].#: [id number] Admission: 10/23/18 Attend Phys: Rachel King MD Discharge: Date of : 68 Report #: [id number] 5. successful placement of drug eluting stents in the proximal lad, and mid circumflex artery. Recommendations Cardiac Rehabilitation Referral Aggressive Medical Therapy <ELECTRONICALLY SIGNED> By: Himanshu Ag MD, FACC 10/23/18 1759 58 [id number] Ag MD, FACC /INF
--- NOTE | 2018-10-23 19:28 | NUR ---
PT BACK IN ROOM APPROX 1500. APPROX 1530 PRESSURE HELD FOR 5 MIN ON RT GRION PROCEDURE SITE. APPROX 1600 DRESSING CHANGED AND LIDOCAINE INJECTED AT SITE. DRESSING CLEAN DRY AND INTACT AT THIS TIME. PT HAS REFUSED GLUCOSE CHECKS FOR LUNCH AND DINNER. CALL LIGHT AND PERSONAL ITEMS WITHIN REACH. NEEDS MET.
--- NOTE | 2018-10-23 19:54 | NUR ---
I HAVE REVIEWED AND AGREE WITH THE CHARTING OF BASIM Butterfield RN ON 10/23/18
[2018-10-24] VITALS: BP 108/67
--- NOTE | 2018-10-24 01:35 | NUR ---
PT ALERT ORIENTED. ON BED REST UNTIL 2229 THEN UP WITH STAND BY ASSIST. INITALLY PT STATED XANAX ORDER WITH NOT THE SAME HOME DOSE. DR NOTIFIED AND ORDER CHGD BUT PT SAID THE 0.25 DOSE WOULD BE OKAY. PT RESTING QUIETLY. NS AT 125MLS/HR.
--- NOTE | 2018-10-24 02:26 | NUR ---
Real SANTOS SITE SOFT. LUKAS D/I.
[2018-10-24 04:00] VITALS: BP 125/66
[2018-10-24 05:34] LABS: HEMATOCRIT 35.6 % (37.0-47.0); HEMOGLOBIN 12.1 gm/dL (12.0-15.0); MCH 30.3 pg (26.0-34.0); MCHC 34.1 g/dL (28.0-37.0); MPV 7.3 fl. (7.2-11.1); RDW-CV 13.1 % (10.5-14.5); WBC 6.7 thou/uL (4.0-11.0)
[2018-10-24 05:51] LABS: CHOLESTEROL 101 mg/dL (<200); HDL CHOLESTEROL 36 mg/dL (>40); LDL CHOLESTEROL 47 mg/dL (<100); TC:HDL 2.8 Ratio (Not establshd); TRIGLYCERIDE 93 mg/dL (<150); TROPONIN-I LEVEL 0.37 ng/mL (<0.06); VLDL 19 mg/dL (<40)
[2018-10-24 05:55] LABS: SERUM ASSESSMENT CLEAR
[2018-10-24 06:00] LABS: CALCIUM 8.7 mg/dL (8.5-10.1); CREATININE 0.7 mg/dL (0.6-1.3)
[2018-10-24 07:10] VITALS: BP 116/71
[2018-10-24 08:25] VITALS: BP 116/71
[2018-10-24 08:32] VITALS: BP 116/71
--- NOTE | 2018-10-24 09:51 | NUR ---
INITAL ASSESSMENT COMPLETED CHARTED. VSS. PT DENIES PAIN. DRESSING TO RIGHT GROIN C/D/I. PT REMOVED HER IV AND REFUSES ACCU CHECKS. PT HAS FLAT AFFECT. HOURLY ROUNDING IN PLACE FOR PT SAFETY. CLWR
[2018-10-24 11:51] VITALS: BP 121/71
[2018-10-24] MEDS ORDERED: METOPROLOL TART25 MG PO (12:22)
[2018-10-24] MEDS ORDERED: LIPITOR80 MG PO (12:25)
--- NOTE | 2018-10-24 17:02 | EKG ---
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: [place] : 1970 Requested By: Himanshu Ag Order Number: [id number] Dennise MD: Jose Luis Hdoges Measurements Intervals [place] Rate: 64 P: 55 NH: 151 QRS: 30 QRSD: 106 T: -41 QT: 412 QTc: 425 Interpretive Statements Sinus rhythm low voltage, extremity leads Nonspecific T abnrm, anterolateral leads Compared to ECG 10/23/2018 15:04:24 T-wave abnormality no longer present Electronically Signed On 10-24-2018 17:01:55 CDT by Jose Luis Hodges [email or web address] <ELECTRONICALLY SIGNED> By: Jose Luis Hodges MD, FACC 10/24/18 1701 0501 0501 Jose Luis Hodges MD, [facility] /EPI
--- NOTE | 2018-10-24 17:32 | CON ---
[address] [address] CONSULTATION Name: EDEN OTERO Room: [address] IN .R.#: [id number] Admission: 10/23/18 Attend Phys: Rachel King MD Discharge: 10/24/18 Date of : 68 Report #: [id number] THIS REPORT FOR: //name// CC: Andrew Freeman DATE OF SERVICE: 10/23/2018 CARDIOLOGY CONSULTATION HISTORY OF PRESENT ILLNESS: The patient is a 48-year-old single white female who I was asked to see in the hospital today after she complained of chest pain. The patient has an extensive past medical history. She apparently had her first coronary artery stent placed in 2008 at [place]. She has had multiple stents since that placed. Several were placed by Dr. Guzman. She had stent placed in 2009 and again in 2010. I actually performed repeat cardiac catheterization in 04/2017, which showed no restenosis stent in the proximal LAD, although there was a 70% stenosis noted beyond the stent. There was also a 99% stenosis of the stent in the first diagonal branch. The patient had a new drug-eluting stent in the first diagonal artery. She then had another cardiac catheterization by me in 07/2017 from the right femoral artery. This showed no restenosis stents in the LAD and diagonal. There was a 90% distal edge restenosis of this stent in the mid LAD. I then placed a new drug-eluting stent in the mid LAD. At that time, ejection fraction was 60%. She had done well since that time and was seen by my partner, Dr. Morales in May. She had only rare episodes of chest pain. She notes for the past several days, she has been having chest pain almost every day, describes as a burning sensation, goes into her left arm, makes her short of breath. She denies the pain being related to food. She has had no belching or bleeding. Denied any fever or cough. The pain resolves, but returns. She denies exertional dyspnea. She notes occasional skipped heartbeat. No syncope. She came to the hospital last night and was admitted. PAST MEDICAL HISTORY: She had previous appendectomy, shoulder surgery, tubal ligation, uterine ablation. She has a history of diabetes, hyperlipidemia. MEDICATIONS: Consist of Xanax, Lipitor, Plavix, Amaryl, metformin, and Protonix. ALLERGIES: She has no known drug allergies. FAMILY HISTORY: Her father had coronary artery bypass surgery. SOCIAL HISTORY: She is single, lives with her son in [place]. 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 Quit smoking 4 years ago. [place] [address] CONSULTATION Name: EDEN OTERO Room: [address] IN .R.#: [id number] Admission: 10/23/18 Attend Phys: Rachel King MD Discharge: 10/24/18 Date of : 68 Report #: [id number] REVIEW OF SYSTEMS: She has had no history of stroke, asthma. She has had peptic ulcer. No liver disease, no kidney disease, no cancer. No psychiatric illness. No chronic skin condition. PHYSICAL EXAMINATION: GENERAL: Revealed a middle-aged female lying in bed. She appeared in no acute distress. VITAL SIGNS: She has blood pressure of 110/70, pulse 60. She is afebrile. HEENT: She was anicteric, conjunctivae pink. Mucous membranes moist. NECK: Veins nondistended. No carotid bruits. Neck is supple. CHEST: Clear to auscultation. CARDIOVASCULAR: Regular rate without murmur. ABDOMEN: Soft. EXTREMITIES: Had no edema. Posterior tibial pulse 2+ bilaterally. SKIN: Warm, dry. NEUROLOGIC: Nonfocal. LABORATORY DATA: Her ECG showed a sinus rhythm with nonspecific T-wave changes. On her workup, she had an echocardiogram in 2015 that showed ejection fraction of 60%. She had a portable chest x-ray last night that showed scarring in the lung bases. Normal heart size. On her lab work last night, sodium 143, BUN of 8, creatinine 0.8, glucose is 145. Her liver function studies were normal. Troponins are all 0.06. In May cholesterol was 104, triglyceride 106, HDL 41, LDL was only 42. In May, TSH was 2.5. White blood cell count 8.3, hemoglobin 13.1. IMPRESSION AND RECOMMENDATIONS: 1. Unstable angina. Recommend repeat cardiac catheterization. 2. Diabetes. 3. Hyperlipidemia. The patient is on a statin drug. 4. Previous tobacco abuse. <ELECTRONICALLY SIGNED> By: Himanshu Ag MD, FACC 10/24/18 1732 1059 [id number] Ag MD, FAC /nt
== END 2018-10-24 13:36 | disposition home or self-care (01) | DRG 247 ==
LOC: M.ERS 01:28 → M.TBA-ER 03:49 → M.2W 03:49
PROVIDERS: Internal Medicine Cardiovascular Disease; ADMIT Family Medicine
PROC: 4A023N7 Measurement of Cardiac Sampling and Pressure, Left Heart, Percutaneous Approach (ICD-10-PCS; principal; 2018-10-23)
PROC: B2151ZZ Fluoroscopy of Left Heart using Low Osmolar Contrast (ICD-10-PCS; principal; 2018-10-23)
PROC: B2111ZZ Fluoroscopy of Multiple Coronary Arteries using Low Osmolar Contrast (ICD-10-PCS; principal; 2018-10-23)
PROC: 027135Z Dilation of Coronary Artery, Two Arteries with Two Drug-eluting Intraluminal Devices, Percutaneous Approach (ICD-10-PCS; principal; 2018-10-23)
DX: I25.110 Atherosclerotic heart disease of native coronary artery with unstable angina pectoris (principal); K21.9 Gastro-esophageal reflux disease without esophagitis; E78.00 Pure hypercholesterolemia, unspecified; E11.9 Type 2 diabetes mellitus without complications; E78.5 Hyperlipidemia, unspecified; E88.81 Metabolic syndrome and other insulin resistance; Z90.49 Acquired absence of other specified parts of digestive tract; Z95.5 Presence of coronary angioplasty implant and graft; Z87.891 Personal history of nicotine dependence; Z82.49 Family history of ischemic heart disease and other diseases of the circulatory system; Z79.82 Long term (current) use of aspirin; Z79.899 Other long term (current) drug therapy

== ENCOUNTER 2019-07-02 09:35 | Inpatient (IN) | payer BC ==
[~2019-07-02] VITALS: Ht 167.6 cm; Wt 89.8 kg
[~2019-07-02 09:35] MED LIST changes: +CHILDREN'S ASPI81 M1 PO; +GLYBURIDE 2.52.5 MG PO; +LIPITOR80 MG PO; +METOPROLOL TART25 MG PO; +XANAX 0.25 MG0.25 MG PO
[2019-07-02 09:40] VITALS: BP 150/83
[2019-07-02 10:00] LABS: ABSOLUTE BASOPHILS 0.1 thou/uL (0.0-0.2); ABSOLUTE EOSINOPHILS 0.3 thou/uL (0.0-0.7); ABSOLUTE LYMPHOCYTES 1.9 thou/uL (0.8-5.3); ABSOLUTE MONOCYTES 0.4 thou/uL (0.0-1.2); BASOPHILS 1.3 %; EOSINOPHILS 4.4 %; HEMATOCRIT 43.4 % (37.0-47.0); HEMOGLOBIN 15.1 gm/dL (12.0-15.0); MCH 30.7 pg (26.0-34.0); MCHC 34.7 g/dL (28.0-37.0); MCV 88.4 fL (80.0-100.0); MONOCYTES 6.5 %; MPV 7.9 fl. (7.2-11.1); NUCLEATED RBCS 0 /100WBC; PLATELET COUNT* 241 thou/uL (150-400); POLYS 59.8 %; RBC 4.91 mil/uL (4.20-5.00); RDW-CV 13.1 % (10.5-14.5); WBC 6.8 thou/uL (4.0-11.0)
[2019-07-02 10:11] LABS: CALCIUM 8.8 mg/dL (8.5-10.1); CREATININE 0.7 mg/dL (0.6-1.3); POTASSIUM 3.8 mmol/L (3.5-5.1)
[2019-07-02 10:13] LABS: APTT 24.5 Seconds (25.0-31.3); PROTIME 10.2 Seconds (9.20-11.50)
[2019-07-02 10:15] LABS: ALBUMIN 4.1 g/dL (3.4-5.0); TOTAL BILIRUBIN 0.5 mg/dL (<0.1-1.0); TOTAL PROTEIN 7.5 g/dL (6.4-8.2)
--- NOTE | 2019-07-02 10:56 | EKG ---
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: : 1970 Requested By: Blanca Turcios Order Number: [id number] MD: Himanshu Ag Measurements Intervals [place] Rate: 81 P: 46 WI: 138 QRS: 5 QRSD: 99 T: 0 QT: 407 QTc: 473 Interpretive Statements Sinus rhythm Low voltage, precordial leads Nonspecific T abnrm, anterolateral leads Compared to ECG 10/24/2018 05:01:26 No significant changes Electronically Signed On 07-02-2019 10:55:38 CDT by Himanshu Ag [email or web address] <ELECTRONICALLY SIGNED> By: Himanshu Ag MD, FACC 07/02/19 1055 0937 0937 Himanshu Ag MD, [facility] /EPI
[2019-07-02 12:38] VITALS: BP 126/67
[2019-07-02 14:00] VITALS: BP 106/70
--- NOTE | 2019-07-02 16:51 | CON ---
[address] [address] CONSULTATION Name: BRANDENEDEN JO Room: [address] IN M.R.#: [id number] Admission: 07/02/19 Attend Phys: Farhan Frederick Discharge: Date of : 68 Report #: [id number] THIS REPORT FOR: //name// cc: Andrew Jones Russell J. DO THIS REPORT FOR: //name// CC: Prieto Jones DO DATE OF SERVICE: 07/02/2019 CARDIOLOGY CONSULTATION HISTORY OF PRESENT ILLNESS: The patient is a 49-year-old single white female who I was asked to see in the hospital after she complained of chest pain. The patient has an extensive past medical history. She has had her first coronary stent placed in 2008 at [place]. She has had several stents since that time including stents placed by Dr. Guzman. She apparently had stents placed in 2009 and 2010. I actually performed repeat cardiac catheterization in 04/2017 here at [facility] that showed no restenosis stent in the LAD. There is a 70% stenosis beyond the stent in the LAD, 99% restenosis stent in the diagonal branch. I then placed stents in the diagonal artery. Ejection fraction was normal. She has been on aspirin and Plavix since that time. She also had a stent placed in the circumflex artery. She is not very active at this time, but does work. She does have occasional chest discomfort. She notes last night she was having sexual intercourse and developed chest discomfort. Last night, she woke up with some chest discomfort, it tended to come and go. It is not related to food or cough. Denied any bleeding. She did note some shortness of breath, but no nausea or diaphoresis. She denied trauma to the chest. She has had no fever, cough, bleeding. She came to the Emergency Room today and was admitted. PAST MEDICAL HISTORY: Otherwise significant for appendectomy, uterine ablation. She has a history of diabetes, hyperlipidemia. MEDICATIONS: Include Xanax, aspirin, Lipitor, Plavix, glimepiride, metformin, metoprolol, Protonix, Effexor. ALLERGIES: She has no known drug allergies. FAMILY HISTORY: Her father had bypass surgery. SOCIAL HISTORY: She is , lives in [place]. 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 Quit smoking 4 years ago. [place] [address] CONSULTATION Name: EDEN OTERO Room: [address]#: [id number] Admission: 07/02/19 Attend Phys: Farhan Frederick Discharge: Date of : 68 Report #: [id number] REVIEW OF SYSTEMS: She has had no history of stroke, asthma, liver disease, kidney disease. She has had no cancer. No psychiatric illness. No chronic skin condition. PHYSICAL EXAMINATION: GENERAL: Revealed a middle-aged female lying in bed. She appeared in no distress. VITAL SIGNS: Blood pressure is 120/70, pulse 60. She is afebrile. HEENT: She was anicteric. Conjunctivae are pink. Mucous members moist. NECK: Neck veins nondistended. No carotid bruits. CHEST: Clear to auscultation. CARDIOVASCULAR: Regular rate and rhythm, no murmur. ABDOMEN: Soft. EXTREMITIES: Had no edema. Dorsalis pedis pulse 2+ bilaterally. SKIN: Warm and dry. NEUROLOGIC: Nonfocal. RADIOLOGICAL DATA: Her ECG on admission showed a sinus rhythm, nonspecific ST and T-wave change. Her workup in the Emergency Room, she had a portable chest x-ray performed that showed normal heart size, clear lung hopkins. LABORATORY WORK: Sodium 137, creatinine 0.7, glucose 266. Liver function studies were normal. Troponins all 0.06. Her white blood cell count is 6.8, hemoglobin is 15.1. IMPRESSION AND RECOMMENDATIONS: 1. Chest pain, atypical for angina. Recommend nuclear stress test since the patient is on a beta jesus and has an abnormal ECG. 2. Diabetes. 3. Hyperlipidemia. The patient is on a statin drug. 4. Previous tobacco abuse. 5. Fatigue. I would check thyroid function studies. <ELECTRONICALLY SIGNED> By: Himanshu Ag MD, [facility] 07/02/19 1651 1330 1351Dfernando Ag MD, [facility] /nt
[2019-07-02 20:00] VITALS: BP 117/48
[2019-07-03 00:26] VITALS: BP 132/77
[2019-07-03 04:25] VITALS: BP 116/73
[2019-07-03 05:49] LABS: CHOLESTEROL 153 mg/dL (<200); HDL CHOLESTEROL 45 mg/dL (>40); LDL CHOLESTEROL 87 mg/dL (<100); TC:HDL 3.4 Ratio (Not establshd); TRIGLYCERIDE 107 mg/dL (<150); VLDL 21 mg/dL (<40)
[2019-07-03 05:52] LABS: SERUM ASSESSMENT CLEAR
[2019-07-03 08:00] VITALS: BP 127/79
--- NOTE | 2019-07-03 13:52 | CARDNUC ---
[place] [address] CARDIAC NUCLEAR IMAGING REPORT Name: EDEN OTERO Room: [address] IN [facility]#: [id number] Admission: 07/02/19 Attend Phys: Prieto Champion Discharge: Date of : 68 Date of Service: 07/03/19 1350 Report #: [id number] THIS REPORT FOR: cc: Andrew Jones Russell J. DO Liston, Michael J. MD [facility] ~ APPROVED REPORT Study performed: 07/02/2019 13:32:00 Indication: Chest pain Patient Location: Out-Patient Stress Tech: Yenni Johnson Stress Nurse: Melony Mcgovern RN Ht: 5 ft 10 in Wt: 200 lbs BSA: 2.09 m2 BMI: 28.69 Medical History Medical History: CAD s/p stent, Hyperlipidemia, Diabetes Medications: atorvastatin, metoprolol,asa-81,clopidogrel Allergies: No known drug allergies Cardiac Risk Factors: Hyperlipidemia, DM Previous Cardiac Procedures: PCI Exercise History: Indeterminate Meds Held (24 hrs): metoprolol Resting Data Rest SPECT myocardial perfusion imaging was performed in supine position 30 minutes following the intravenous injection of 27.5 mCi of Tc-99m Sestamibi. Time of rest injection: 13:40 Date: 07/02/2019 Administration Route: IV Administration Site: Right AC Pharmacologic Stress Pharmacologic stress test was performed by injecting Regadenoson 0.4 mg IV push over 10-15 seconds immediately followed by the intravenous injection of 35.3 mCi of Tc-99m Sestamibi. Time of stress injection: 10:45 Date: 07/03/2019 Administration Route: IV Administration Site: Right AC Heart Rate at time of stress injection: 130 bpm. Gated Stress SPECT was performed 40 [place] [address] CARDIAC NUCLEAR IMAGING REPORT Name: EDEN OTERO Room: [address] IN [facility]#: [id number] Admission: 07/02/19 Attend Phys: Prieto Champion Discharge: Date of : 68 Date of Service: 07/03/19 1350 Report #: [id number] injection. The images were gated to evaluate regional wall motion and calculate left ventricular ejection fraction. Prone imaging was performed. Stress Test Details Stress Test: Pharmacologic stress testing performed using 0.4 mg of regadenoson per 5 mL given IV over 10 seconds. Reason for pharmacologic stress test: physical limitation. 60 mg caffeine given for nausea. HR Max Heart Rate (APMHR): 170 bpm Resting HR: 83 bpm Target HR (85% APMHR): 144 bpm Max HR Achieved: 130 bpm % of APMHR: 76 BP Resting BP: 130/89 mmHg Max BP: 135/76 mmHg Recovery BP: 124/86 mmHg ECG Resting ECG: Sinus Rhythm, nonspecific ST-T abnormalities Stress ECG: Sinus tachycardia, nonspecific ST-T abnormalities ST Change: None Arrhythmia: None Recovery ECG: Sinus Rhythm, nonspecific ST-T abnormalities Recovery ST Change: None Recovery Arrhythmia: None Clinical Reason for Termination: Completed protocol Exercise duration: 0 min sec Exercise capacity: 1 METs The patient tolerated walking Lexiscan protocol without significant symptoms. Nurse Comments pt too weak to walk on treadmill Stress ECG Conclusion The baseline 12-lead EKG shows sinus rhythm with subtle nonspecific T-wave flattening diffusely. EKGs obtained during and post Lexiscan infusion show sinus rhythm and sinus tachycardia with continued nonspecific T-wave flattening. There were no stress[place] [address] CARDIAC NUCLEAR IMAGING REPORT Name: EDEN OTERO Room: [address]#: [id number] Admission: 07/02/19 Attend Phys: Prieto Champion Discharge: Date of : 68 Date of Service: 07/03/19 1350 Report #: [id number] arrhythmias. Study Quality Study: Good Artifact: Mild Breast artifact Study Data At rest, the left ventricular ejection fraction was 74%.. Post stress, the left ventricular ejection was 73%.. TID = 0.98. Perfusion Perfusion images obtained at rest and post walking Lexiscan stress show relatively uniform uptake of the radioisotope without the myocardium without significant defect. Wall Motion Normal left ventricular wall motion. Nuclear Conclusion ECG Findings: non-diagnostic Clinical Findings: negative for ischemia Nuclear Findings: negative for ischemia Exercise Capacity: not assessed Left Ventricular Function: normal Risk Study: low Myocardial perfusion images show no defect to suggest infarct or ischemia. Left particular systolic function appears normal on gated studies. This is a low risk study. <Conclusion> The baseline 12-lead EKG shows sinus rhythm with subtle nonspecific T-wave flattening diffusely. EKGs obtained during and post Lexiscan infusion show sinus rhythm and sinus tachycardia with continued nonspecific T-wave flattening. There were no stress-induced arrhythmias. <ELECTRONICALLY SIGNED> By: Jose Luis Hodges MD, FACC 07/03/19 1350 1350 1350 Jose Luis Hodges MD, FACC /INF
[2019-07-03 15:34] VITALS: BP 127/79
== END 2019-07-03 16:28 | disposition home or self-care (01) | DRG 303 ==
LOC: M.ERS 09:35 → M.TBA-ER 11:35 → M.2W 11:35
PROVIDERS: Internal Medicine Cardiovascular Disease; Personal Emergency Response Attendant; ADMIT Internal Medicine
DX: I25.119 Atherosclerotic heart disease of native coronary artery with unspecified angina pectoris (principal); K21.9 Gastro-esophageal reflux disease without esophagitis; E78.5 Hyperlipidemia, unspecified; F41.9 Anxiety disorder, unspecified; E11.9 Type 2 diabetes mellitus without complications; Z90.49 Acquired absence of other specified parts of digestive tract; Z95.5 Presence of coronary angioplasty implant and graft; Z87.891 Personal history of nicotine dependence; Z82.49 Family history of ischemic heart disease and other diseases of the circulatory system

== ENCOUNTER 2019-08-25 06:03 | Inpatient (IN) | payer OTHER ==
[2019-08-25] VITALS (13 sets, daily range): BP systolic 105–146; BP diastolic 60–79
[~2019-08-25] VITALS: Ht 162.6 cm; Wt 87.5 kg
[2019-08-25 06:29] LABS: ABSOLUTE BASOPHILS 0.1 thou/uL (0.0-0.2); ABSOLUTE EOSINOPHILS 0.5 thou/uL (0.0-0.7); ABSOLUTE LYMPHOCYTES 2.1 thou/uL (0.8-5.3); ABSOLUTE MONOCYTES 0.4 thou/uL (0.0-1.2); ABSOLUTE NEUTROPHILS 3.8 thou/uL (1.6-8.1); BASOPHILS 1.4 %; EOSINOPHILS 6.7 %; HEMATOCRIT 44.7 % (37.0-47.0); HEMOGLOBIN 15.4 gm/dL (12.0-15.0); LYMPHOCYTES 30.6 %; MCH 30.4 pg (26.0-34.0); MCHC 34.5 g/dL (28.0-37.0); MCV 88.2 fL (80.0-100.0); MONOCYTES 5.6 %; MPV 7.5 fl. (7.2-11.1); NUCLEATED RBCS 0 /100WBC; PLATELET COUNT* 308 thou/uL (150-400); POLYS 55.7 %; RBC 5.06 mil/uL (4.20-5.00); RDW-CV 13.9 % (10.5-14.5); WBC 6.8 thou/uL (4.0-11.0)
[2019-08-25 06:37] LABS: CALCIUM 9.5 mg/dL (8.5-10.1); CREATININE 0.9 mg/dL (0.6-1.3); POTASSIUM 4.1 mmol/L (3.5-5.1)
[2019-08-25 06:41] LABS: INR 0.9; PROTIME 9.6 Seconds (9.20-11.50)
[2019-08-25 06:48] LABS: ALBUMIN 3.7 g/dL (3.4-5.0); MAGNESIUM 1.7 mg/dL (1.8-2.4); TOTAL BILIRUBIN 0.5 mg/dL (<0.1-1.0); TOTAL PROTEIN 7.3 g/dL (6.4-8.2)
[2019-08-25 08:45] LABS: CHOLESTEROL 147 mg/dL (<200); HDL CHOLESTEROL 41 mg/dL (>40); LDL CHOLESTEROL 79 mg/dL (<100); TC:HDL 3.6 Ratio (Not establshd); TRIGLYCERIDE 138 mg/dL (<150); VLDL 28 mg/dL (<40)
[2019-08-25 08:47] LABS: SERUM ASSESSMENT Clear
--- NOTE | 2019-08-25 16:37 | EKG ---
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: [place] : 1970 Requested By: Elyssa Reddy Order Number: [id number] MD: Jose Luis Hodges Measurements Intervals [place] Rate: 84 P: 56 MD: 146 QRS: 10 QRSD: 101 T: 52 QT: 388 QTc: 459 Interpretive Statements Sinus rhythm Low voltage, extremity and precordial leads Baseline wander in lead(s) I,III,aVL Compared to ECG 07/02/2019 09:37:54 No significant changes Electronically Signed On 08-25-2019 16:35:43 CDT by Jose Luis Hodges [email or web address] <ELECTRONICALLY SIGNED> By: Jose Luis Hodges MD, FACC 08/25/19 1635 0610 Jose Luis Hodges MD, FAC /EPI
--- NOTE | 2019-08-25 16:37 | EKG ---
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
--- NOTE | 2019-08-25 16:37 | EKG ---
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1970 Requested By: Elyssa Reddy Order Number: [id number] Dennise MD: Jose Luis Hodges Measurements Intervals [place] Rate: 85 P: 41 WI: 138 QRS: -10 QRSD: 100 T: 80 QT: 398 QTc: 474 Interpretive Statements Sinus rhythm Borderline low voltage, extremity leads Baseline wander in lead(s) I,II,aVR,aVF Compared to ECG 07/02/2019 09:37:54 No significant changes Electronically Signed On 08-25-2019 16:35:39 CDT by Jose Luis Hodges [email or web address] <ELECTRONICALLY SIGNED> By: Jose Luis Hodges MD, FACC 08/25/19 1635 5 5 Jose Luis Hodges MD, FAC /EPI
[2019-08-26] VITALS: BP 125/71
[2019-08-26 04:00] VITALS: BP 108/69
[2019-08-26 06:45] LABS: HEMATOCRIT 38.6 % (37.0-47.0); HEMOGLOBIN 13.4 gm/dL (12.0-15.0); MCH 30.7 pg (26.0-34.0); MCHC 34.6 g/dL (28.0-37.0); MCV 88.7 fL (80.0-100.0); MPV 7.2 fl. (7.2-11.1); RBC 4.35 mil/uL (4.20-5.00); RDW-CV 13.8 % (10.5-14.5); WBC 6.3 thou/uL (4.0-11.0)
[2019-08-26 07:00] VITALS: BP 108/62
[2019-08-26 07:02] LABS: ALBUMIN 3.1 g/dL (3.4-5.0); CALCIUM 7.9 mg/dL (8.5-10.1); CREATININE 0.8 mg/dL (0.6-1.3); POTASSIUM 4.3 mmol/L (3.5-5.1); TOTAL BILIRUBIN 0.3 mg/dL (<0.1-1.0); TROPONIN-I LEVEL 0.25 ng/mL (<0.06)
[2019-08-26] MEDS ORDERED: EFFIENT10 MG PO (08:44)
--- NOTE | 2019-08-26 09:30 | NUR ---
INITAL ASSESSMENT COMPLETED CHARTED. VSS. TRACING SR ON MONITOR. PT DENIES PAIN, CP, SOA, N/V/D. REFER TO COMPUTER CHARTING FOR FURTHER DETAIL. HOURLY ROUNDING IN PLACE FOR PT SAFETY. CLWR.
[2019-08-26 09:37] VITALS: BP 108/62
[2019-08-26 09:59] VITALS: BP 108/62
--- NOTE | 2019-08-26 13:26 | CARD ---
[address] [address] CARDIAC CATH REPORT Name: EDEN OTERO Room: [address] [place] [facility]#: [id number] Admission: 08/25/19 Attend Phys: Jesse chau [place] Discharge: 08/26/19 Date of : 68 Report #: [id number] THIS REPORT FOR: //name// cc: Andrew Jones Russell J. DO ~ APPROVED REPORT Study performed: 08/25/2019 13:31:52 Patient Details Patient Status: In-Patient Room #: The patient is a 49 year-old female Event Personnel Jj Bautista Kettle Operator, Maki Chi RN, Kamaljit Brewer RN RN, Hanna Alexander RTR Scrub, Lorin Pavon RTR Monitor Procedures Performed Art Access - R femoral artery , Left Heart Cath w/or w/o Coronaries, GLADIS Place w/wo Plasty Single CIRC , GLADIS Place w/wo Plasty Single LAD , Hemostasis w/ Mynx Indication Unstable angina Risk Factors Hypercholesterolemia, Hypertension Previous Procedures/Diagnoses Previous PCI Admission/Lab Medications/Medications given during procedure Angiomax IV bolus 13 ml, Angiomax Drip IV 30.71 ml per hr, Effient PO 60 mg Procedure Narrative The patient was brought urgently to the Cardiac Catheterization Laboratory and was prepped and draped in a sterile manner. The right femoral was infiltrated with 2% Lidocaine subcutaneous anesthesia. A 6F Leon sheath was inserted into the right femoral artery. Coronary angiography was performed using coronary diagnostic catheters. The right coronary system was accessed and visualized with a 6 Fr JR 4 catheter. The left coronary system was accessed and visualized with a 6 Fr JL 4 catheter. The left ventricle was accessed and visualized with a 6 Fr Pigtail catheter. Left ventricular/[place] [address] CARDIAC CATH REPORT Name: EDEN OTERO Room: [address] IN ..#: [id number] Admission: 08/25/19 Attend Phys: Jesse alston [place] Discharge: 08/26/19 Date of : 68 Report #: [id number] Valve gradient assessed via catheter pullback. Left ventriculogram was performed in CONNELLY projection. Pre-demployment femoral angiogram was performed . Closure device was deployed with a 6 Fr MynxGrip 6/7F. The patient tolerated the procedure well and there were no complications associated with the procedure. There was no hematoma. Intraoperative Conscious Sedation Sedation start time: 14:22 Case end Time: 15:41 Fentanyl 50 mcg Versed 3 mg Fluoro Time: 17.4 minutes Dose: DAP [id number] cGycm2 2118 mGy Contrast Type and Amount: Visipaque 255 ml Diagnostic Cath Left Main 0% narrowing LAD 75% ostial LAD stenosis followed by widely patent proximalmid vessel stents with 80% stenosis of the mid LAD beyond the stented portion Circumflex 90% in-stent restenosis of the midportion of the nondominant circumflex Right Coronary Large dominant vessel which appeared normal with 0% narrowing Left Ventriculography The left ventricle is normal in size with normal contractility. The left ventricular ejection fraction is estimated to be 60%. Left ventricular wall motion abnormalities are not present. There is no mitral insufficiency. Hemodynamics The aortic pressure is 127/60 mmHg with a mean of 82 mmHg. The left ventricular pressure is 115/-9 mmHg with a mean of mmHg. The left ventricular end diastolic pressure is 10 mmHg. There was no gradient across the aortic valve upon pullback. PCI Technique Lesion Anticoagulation was achieved with Angiomax Drip. Patient was preloaded with Angiomax IV 13 ml. Percutaneous coronary intervention was performed on the mid circumflex artery segment. The lesion stenosis prior to intervention was 90% with DARVIN 3 flow. A 6F XB LAD 3.5 Guide Catheter was used to engage the left main ostium. A Gudog Flex 300cm Interventional Guidewire was [place] [address] CARDIAC CATH REPORT Name: EDEN OTERO Room: [address] IN M.R.#: [id number] Admission: 08/25/19 Attend Phys: Jesse alston [place] Discharge: 08/26/19 Date of : 68 Report #: [id number] BALLOON DILATION A Balloon catheter Mini Trek RX 2.0 X 12 was inserted and inflated up to 12.00atm for 17seconds. Additional Inflation: 17.00atm for 14seconds. STENT DEPLOYMENT A drug-eluting stent [place] RX Stent 2.0X15mm was inserted and inflated up to 12.00atm for 13seconds. Additional Inflation: 12.00atm for 11seconds. Final angiography reveals 10 % stenosis with DARVIN 3 flow. PCI Technique Lesion 2 Percutaneous Coronary Intervention was performed on the mid left anterior descending artery segment. The lesion stenosis prior to intervention was 80% with DARVIN 3 flow. A 6F XB LAD 3.5 Guide Catheter was used to engage the left ostium. A BMW 190cm Interventional Guidewire was used to cross the lesion. Stent Deployment A drug-eluting stent [place] RX Stent 2.0X12mm was inserted and inflated up to 12.00atm for 13seconds. Additional Inflation: 14.00atm for 9seconds. Additional Inflation: 15.00atm for 9seconds. Final angiography reveals 0 % stenosis with DARVIN 3 flow. PCI Technique Lesion 3 Percutaneous Coronary Intervention was performed on the proximal left anterior descending artery segment. The lesion stenosis prior to intervention was 75% with DARVIN 3 flow. Stent Deployment A drug-eluting stent [place] RX Stent 2.75X8mm was inserted and inflated up to 15.00atm for 14seconds. Additional Inflation: 18.00atm for 10seconds. Additional Inflation: 20.00atm for 11seconds. Post Stent Deployment Balloon Dilation A Balloon catheter [place] Trek RX 3.0 X 8 was inserted and inflated up to 15.00atm for 8seconds. Additional Inflation: 17.00atm for 10seconds. Final angiography reveals 0 % stenosis with DARVIN [address] flow[address] Conclusion [address] [address] CARDIAC CATH REPORT Name: EDEN OTERO Room: [address] IN M.R.#: [id number] Admission: 08/25/19 Attend Phys: Jesse Nasrin Maldonado Discharge: 08/26/19 Date of : 68 Report #: [id number] 1. Significant multivessel coronary artery disease characterized by the following: A 75% ostial with 80% focal mid LAD stenosis B 90% stenosis of the midportion of the nondominant circumflex within a previously deployed stent C large dominant right coronary artery which appeared normal 2. Normal left ventricular systolic function, estimated ejection fraction being 60% 3. Normal left-sided hemodynamic study 4. Successful PCI with deployment of drug-eluting stents at the sites of 75% proximal and 80% mid LAD stenosis with 0% residual narrowings at both sites following stent deployment and DARVIN-3 flow to the distal vessel 5. Successful PCI with deployment of a drug-eluting stent at site of 90% mid circumflex in-stent restenosis with 10% residual narrowing and DARVIN-3 flow to the distal vessel Recommendations Cardiac Risk Reduction Program Aggressive Medical Therapy Medications Administered Prasugrel Diagnostic Cath Approved by: Jj Bautsita MD Date/Time: 08/26/2019 13:23:05 <ELECTRONICALLY SIGNED> By: Jj Bautista MD, FACC 08/26/19 1324 1324 1324Jj Bautista MD, FACC /INF
--- NOTE | 2019-08-26 15:25 | EKG ---
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1970 Requested By: Jj Bautista Order Number: [id number] Reading MD: Jj Bautista Measurements Intervals [place] Rate: 57 P: 70 CT: 148 QRS: 36 QRSD: 98 T: 73 QT: 690 QTc: 672 Interpretive Statements Sinus rhythm Borderline T wave abnormalities Prolonged QT interval Compared to ECG 08/25/2019 06:45:35 T-wave abnormality now present Prolonged QT interval now present Electronically Signed On 08-26-2019 15:23:59 CDT by Jj Bautista [email or web address] <ELECTRONICALLY SIGNED> By: Jj Bautista MD, [facility] 08/26/19 1523 1648 1648 Jj Bautista MD, FAC /EPI
--- NOTE | 2019-08-26 15:28 | EKG ---
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 08/26/19 1526 0608 0608 Jj Bautista MD, [facility] /EPI
== END 2019-08-26 12:40 | disposition home or self-care (01) | DRG 246 ==
LOC: M.ERS 06:03 → M.TBA-ER 07:11 → M.2W 08:44
PROVIDERS: Emergency Medicine; Internal Medicine; ADMIT Family Medicine
PROC: 027136Z Dilation of Coronary Artery, Two Arteries with Three Drug-eluting Intraluminal Devices, Percutaneous Approach (ICD-10-PCS; principal; 2019-08-25)
PROC: B211YZZ Fluoroscopy of Multiple Coronary Arteries using Other Contrast (ICD-10-PCS; principal; 2019-08-25)
PROC: B215YZZ Fluoroscopy of Left Heart using Other Contrast (ICD-10-PCS; principal; 2019-08-25)
PROC: 4A023N7 Measurement of Cardiac Sampling and Pressure, Left Heart, Percutaneous Approach (ICD-10-PCS; principal; 2019-08-25)
DX: I25.110 Atherosclerotic heart disease of native coronary artery with unstable angina pectoris (principal); I21.4 Non-ST elevation (NSTEMI) myocardial infarction; E11.65 Type 2 diabetes mellitus with hyperglycemia; K21.9 Gastro-esophageal reflux disease without esophagitis; E83.42 Hypomagnesemia; E66.9 Obesity, unspecified; F41.1 Generalized anxiety disorder; I10 Essential (primary) hypertension; E78.5 Hyperlipidemia, unspecified; Z90.49 Acquired absence of other specified parts of digestive tract; Z68.33 Body mass index [BMI] 33.0-33.9, adult; Z95.5 Presence of coronary angioplasty implant and graft; Z87.01 Personal history of pneumonia (recurrent); Z87.898 Personal history of other specified conditions; Z79.84 Long term (current) use of oral hypoglycemic drugs; Z79.82 Long term (current) use of aspirin; Z79.899 Other long term (current) drug therapy; Z87.891 Personal history of nicotine dependence; Z79.01 Long term (current) use of anticoagulants